=== PATIENT | male | born 1985 | race Two or more races ===

== ENCOUNTER 2019-04-05 01:28 | Emergency (ER) | payer OTHER ==
[~2019-04-05] VITALS: Ht 182.9 cm; Wt 108.9 kg
[2019-04-05 01:38] VITALS: Ht 182.9 cm; Wt 108.9 kg
[2019-04-05 03:48] VITALS: BP 141/90
== END 2019-04-05 03:48 | disposition home or self-care (01) ==
LOC: ED 01:28
DX: M25.562 Pain in left knee (principal); M54.2 Cervicalgia; M79.642 Pain in left hand; Z98.890 Other specified postprocedural states; V43.52XA Car driver injured in collision with other type car in traffic accident, initial encounter; Y93.I9 Activity, other involving external motion; Y92.488 Other paved roadways as the place of occurrence of the external cause; Y99.8 Other external cause status
CPT/HCPCS: Q0092